=== PATIENT | male | born 1940 | race African-American/Black ===

== ENCOUNTER 2017-12-31 14:49 | Emergency (ER) | payer MEDICARE, OTHER ==
[2017-12-31 14:57] VITALS: BP 159/62
--- NOTE | 2017-12-31 15:28 | ER Document Report ---
ED Medical Screen (RME) - General Chief Complaint: Abnormal Lab Results Stated Complaint: ABNORMAL LABS Time Seen by Provider: 12/31/17 15:25 TRAVEL OUTSIDE OF THE U.S. IN LAST 30 DAYS: No - HPI Notes: 12/31/17 15:25 Patient coming in complaining that his cold stating that he receives blood transfusions weekly patient has a dialysis catheter coming out of the left side of his neck along with a port to the right side of his chest. Family member at bedside states patient recently was discharged from a rehab facility in [place] and is now moved here to [place]. Family at bedside states the patient does have an extensive medical history of which they know nothing about it. - Related Data Allergies/Adverse Reactions: No Known Allergies Allergy (Unverified 12/31/17 14:51) Past Medical History - Social History Frequency of alcohol use: None Drug Abuse: None Renal/ Medical History: Denies: Hx Peritoneal Dialysis Review of Systems - Review of Systems Constitutional: Other - cold Physical Exam - Vital signs Vitals: Temp Pulse Resp BP Pulse Ox 98.2 F 65 16 159/62 H 99 12/31/17 14:56 12/31/17 14:56 12/31/17 14:56 12/31/17 14:56 12/31/17 14:56 - Respiratory Respiratory status: No respiratory distress Chest status: Nontender Breath sounds: Normal Chest palpation: Normal - Cardiovascular Rhythm: Regular Heart sounds: Normal auscultation Course - Vital Signs Vital signs: Temp Pulse Resp BP Pulse Ox 98.2 F 65 16 159/62 H 99 12/31/17 14:56 12/31/17 14:56 12/31/17 14:56 12/31/17 14:56 12/31/17 14:56
[2017-12-31 16:19] LABS: ABSOLUTE EOSINOPHILS # (AUTO) 0.3 10^3/uL (0.0-0.6); ABSOLUTE LYMPHOCYTES (AUTO) 0.4 10^3/uL (0.5-4.7); ABSOLUTE MONOCYTES (AUTO) 0.7 10^3/uL (0.1-1.4); ABSOLUTE NEUT (AUTO) 3.7 10^3/uL (1.7-8.2); BASOPHILS % (AUTO) 0.9 % (0-2); EOSINOPHILS % (AUTO) 6.1 % (0-6); HEMATOCRIT 24.6 % (37.9-51.0); HEMOGLOBIN 8.1 g/dL (13.5-17.0); LYMPHOCYTES % (AUTO) 8.4 % (13-45); MEAN CORPUSCULAR HEMOGLOBIN 31.1 pg (27.0-33.4); MEAN CORPUSCULAR VOLUME 94 fl (80-97); MONOCYTES % (AUTO) 13.3 % (3-13); PLATELET COUNT 147 10^3/uL (150-450); RED BLOOD COUNT 2.62 10^6/uL (4.35-5.55); RED CELL DISTRIBUTION WIDTH 16.7 % (11.5-14.0); SEGMENTED NEUTROPHILS % (AUTO) 71.3 % (42-78); TOTAL CELLS COUNTED % (AUTO) 100 %; WHITE BLOOD COUNT 5.3 10^3/uL (4.0-10.5)
[2017-12-31 16:39] LABS: ANION GAP 11 (5-19); BLOOD UREA NITROGEN 42 mg/dL (7-20); CARBON DIOXIDE 27 mmol/L (22-30); CHLORIDE 104 mmol/L (98-107); GLUCOSE 101 mg/dL (75-110); POTASSIUM 3.8 mmol/L (3.6-5.0); SODIUM 141.9 mmol/L (137-145)
--- NOTE | 2017-12-31 18:59 | ER Document Report ---
ED General - General Chief Complaint: Abnormal Lab Results Stated Complaint: ABNORMAL LABS Time Seen by Provider: 12/31/17 15:25 Mode of Arrival: Ambulatory Information source: Patient Notes: 77-year-old man with a history of diabetes and end-stage renal disease (he does have a Juan Carlos catheter). He does have a history of anemia and wanted to get his blood checked. Additionally, he left [place] 3 days ago and the criminal justice social worker has not set up dialysis and is now living with family here and they are trying to get him into the system for dialysis. TRAVEL OUTSIDE OF THE U.S. IN LAST 30 DAYS: No - HPI Onset: Last week Onset/Duration: Gradual Quality of pain: No pain Severity: None Pain Level: Denies Associated symptoms: denies: Chest pain, Fever, Shortness of breath Exacerbated by: Denies Relieved by: Denies Similar symptoms previously: Yes Recently seen / treated by doctor: No - Related Data Allergies/Adverse Reactions: No Known Allergies Allergy (Unverified 12/31/17 14:51) Past Medical History - General Information source: Patient - Social History Smoking Status: Current Every Day Smoker Cigarette use (# per day): Yes - Half pack per day Chew tobacco use (# tins/day): No Frequency of alcohol use: None Drug Abuse: None Lives with: Family Family History: None Patient has suicidal ideation: No Patient has homicidal ideation: No - Past Medical History Cardiac Medical History: Reports: Hx Hypertension Pulmonary Medical History: Reports: Hx COPD Endocrine Medical History: Reports: Hx Diabetes Mellitus Type 2 Renal/ Medical History: Denies: Hx Peritoneal Dialysis Past Surgical History: Reports: Hx Abdominal Surgery - exploratory, Hx Appendectomy Review of Systems - Review of Systems Constitutional: denies: Chills, Fever EENT: No symptoms reported Cardiovascular: No symptoms reported Respiratory: No symptoms reported Gastrointestinal: No symptoms reported Genitourinary: No symptoms reported Male Genitourinary: No symptoms reported Musculoskeletal: No symptoms reported Skin: No symptoms reported Hematologic/Lymphatic: No symptoms reported Neurological/Psychological: No symptoms reported Physical Exam - Vital signs Vitals: Temp Pulse Resp BP Pulse Ox 98.2 F 65 16 159/62 H 99 12/31/17 14:56 12/31/17 14:56 12/31/17 14:56 12/31/17 14:56 12/31/17 14:56 Notes: Physical exam: GENERAL: 77-year-old man, alert and oriented 3, no acute distress HEAD: Atraumatic, normocephalic. EYES: Pupils equal round and reactive to light, extraocular movements intact, sclera anicteric, conjunctiva are normal. ENT: TMs normal, nares patent, oropharynx clear without exudates. Moist mucous membranes. NECK: Normal range of motion, supple without obvious mass or JVD. Left Juan Carlos catheter: Site dry and intact. LUNGS: Breath sounds clear to auscultation bilaterally and equal. No wheezes rales or rhonchi. HEART: Regular rate and rhythm without murmurs, rubs or gallops. ABDOMEN: Soft, normoactive bowel sounds. No tenderness to palpation. No guarding, no rebound. No masses appreciated. EXTREMITIES: Normal range of motion. Chronic nonpitting 2+ edema bilaterally. No clubbing or cyanosis. NEUROLOGICAL: Cranial nerves II through XII grossly intact. Normal speech, moving all extremities. PSYCH: Normal mood, normal affect. SKIN: Warm, Dry, normal turgor, no rashes or lesions noted. Course - Re-evaluation Re-evalutation: 01/01/18 02:52 Note: I have had a long discussion with the family. Patient has had anemia in the past requiring transfusions and he can normally feel when he is anemic. Patient denies any weakness and states he does not feel like he needs a transfusion. The issue at hand for this patient is that he recently relocated from [place] and a week before his departure, he was started on dialysis. No arrangements were made in [place] for setting up dialysis here. I did discuss the case with Dr. Maria who recommended having family contact the criminal justice social worker in [place] where the dialysis was performed and having them send paperwork to [facility]. I discussed this with them. I also gave them contact numbers for Dr. Maria as well as a primary care doctor. - Vital Signs Vital signs: Temp Pulse Resp BP Pulse Ox 98.2 F 65 14 159/62 H 99 12/31/17 14:56 12/31/17 14:56 12/31/17 18:14 12/31/17 14:56 12/31/17 14:56 - Laboratory Result Diagrams: 12/31/17 15:35 12/31/17 15:35 Laboratory results interpreted by me: 12/31/17 12/31/17 15:35 15:35 RBC 2.62 L Hgb 8.1 L Hct 24.6 L RDW 16.7 H Plt Count 147 L Lymphocytes % 8.4 L Monocytes % 13.3 H Eosinophils % 6.1 H Absolute Lymphocytes 0.4 L BUN 42 H Creatinine 5.72 H Est GFR ( Amer) 12 L Est GFR (Non-Af Amer) 10 L Calcium 8.0 L Discharge - Discharge Clinical Impression: End-stage renal disease Condition: Stable Disposition: HOME, SELF-CARE Additional Instructions: There is a fair amount of paperwork that needs to be taken care of for dialysis. I recommend you call the criminal justice social worker from [place] and asked them to send paperwork to [facility] in [place], [place] to set up dialysis. This is the quickest way to get back into the dialysis here. In the meantime, I put the number for her primary care doctor (Dr. Raya), as well as the number for the kidney doctor (Dr. Maria) on the chart and I would call both offices to see if you can get an appointment soon. Return to the emergency room if he develops shortness of breath, worsening weakness or fatigue or any concerns or getting worse. Referrals: Arik MARIA MD [ACTIVE STAFF] - Follow up as needed (This is the number the kidney doctor) TRACI RAYA MD [ACTIVE STAFF] - Follow up as needed (This is the number of a good primary care doctor affiliated with the hospital.)
== END 2017-12-31 19:31 | disposition home or self-care (01) ==
LOC: EDBD → ER 14:49
DX: I12.0 Hypertensive chronic kidney disease with stage 5 chronic kidney disease or end stage renal disease (principal); E11.22 Type 2 diabetes mellitus with diabetic chronic kidney disease; N18.6 End stage renal disease; Z99.2 Dependence on renal dialysis; F17.210 Nicotine dependence, cigarettes, uncomplicated; J44.9 Chronic obstructive pulmonary disease, unspecified
CPT/HCPCS: 36415; 80048; 85025; 86850; 86900; 86901; 99284

== ENCOUNTER 2018-01-02 03:12 | Emergency (ER) | payer MEDICARE, OTHER ==
[2018-01-02] MEDS ORDERED: ASPIRIN 81 MG TABLET, CHEWABLE PO ONE (03:19)
[2018-01-02] MEDS ORDERED: CALCIUM GLUCONATE 1000 MG/10 ML INJ IV ONE ×2 (03:28→03:59)
[2018-01-02] MEDS: NITROGLYCERIN 0.4 MG/TAB 25 TAB/BOTTLE SL PRN ×3 (03:42→04:09)
--- NOTE | 2018-01-02 03:42 | RADIOLOGY REPORT (SQ) ---
EXAM DESCRIPTION: XR CHEST 1 VIEW COMPLETED DATE/TME: 01/02/2018 03:19 CLINICAL HISTORY: Resp distress COMPARISON: None. FINDINGS: Single frontal view of the chest. Cardiomegaly. Left IJ temporary hemodialysis catheter with tip in the SVC. Right IJ Mediport with tip in the high right atrium. Pulmonary vascular congestion. No consolidation, pneumothorax, or pleural effusion. No displaced rib fractures identified. Upper abdominal soft tissues are unremarkable. IMPRESSION: 1. Cardiomegaly with pulmonary vascular congestion.
[2018-01-02 03:44] LABS: ARTERIAL BLOOD BASE EXCESS -1.2 mmol/L; ARTERIAL BLOOD H2CO3 2.63 mmol/L (1.05-1.35); ARTERIAL BLOOD HCO3 29.4 mmol/L (20-24); ARTERIAL BLOOD O2 SATURATION 99.2 % (94-98); ARTERIAL BLOOD PO2 229.6 mmHg (80-100); ARTERIAL BLOOD TOTAL CO2 32.1 mmol/L (23-27)
[2018-01-02 03:45] LABS: ARTERIAL BLOOD FIO2 60%
--- NOTE | 2018-01-02 03:45 | ER Document Report ---
ED General - General Chief Complaint: Respiratory Distress Stated Complaint: DIFFICULTY BREATHING Time Seen by Provider: 01/02/18 03:25 TRAVEL OUTSIDE OF THE U.S. IN LAST 30 DAYS: No - HPI Notes: Patient is a 77-year-old male that presents to the emergency department for chief complaint of shortness of breath and chest pain. Patient has missed dialysis for at least the last 5 days because he recently moved to the area. He is currently now living with his son who is in the process of getting him established in the area for dialysis. Patient began getting increasingly short of breath today. He did report to EMS that he was having substernal chest pain. Patient is currently on CPAP and not able to provide further descriptions of his chest pain. EMS states he was 88% on room air and was tripoding at presentation. They gave him 2 inches of Nitropaste and placed him on CPAP. HPI limited because of patient's CPAP and clinical condition. Past Medical History: Renal failure, COPD Past Surgical History: Mediport, left neck dialysis catheter Social History: Unknown Family History: Reviewed and noncontributory for presenting illness Allergies: Reviewed, see documented allergy list. REVIEW OF SYSTEMS: CONSTITUTIONAL : No fever No chills No diaphoresis No recent illness EENT: No vision changes No congestion No sore throat CARDIOVASCULAR: chest pain No palpitations No shortness of breath RESPIRATORY: shortness of breath No cough No difficulty breathing GASTROINTESTINAL: No abdominal pain No nausea No vomiting No diarrhea GENITOURINARY: No dysuria No hematuria No difficulty urinating MUSCULOSKELETAL: No back pain No leg pain No arm pain SKIN: No rashes No lesions LYMPHATIC: No swollen, enlarged glands. NEUROLOGICAL: No lightheadedness No headache No weakness No paresthesias PSYCHIATRIC: No anxiety No depression PHYSICAL EXAMINATION: Vital signs reviewed, nursing noted reviewed. GENERAL: Diaphoretic, moderate acute distress HEAD: Atraumatic, normocephalic. EYES: Eyes appear normal, extraocular movements intact, sclera anicteric, conjunctiva are normal. ENT: nares patent, oropharynx clear without exudates. Moist mucous membranes. NECK: Normal range of motion, supple without lymphadenopathy. Left-sided dialysis catheter no bleeding or drainage LUNGS: Breath sounds wheezing and diminished to auscultation bilaterally. Moderate accessory muscle use and retractions HEART: Regular rate and rhythm without murmurs ABDOMEN: Soft, nontender, normoactive bowel sounds. No rebound, guarding, or rigidity. No masses appreciated. Protuberant EXTREMITIES: Nontender, good range of motion, no pitting or edema. NEUROLOGICAL: No focal neurological deficits. Moves all extremities spontaneously Motor and sensory grossly intact on exam. PSYCH: Normal mood, normal affect. SKIN: no rashes or lesions noted on exposed skin - Related Data Allergies/Adverse Reactions: amitriptyline Allergy (Verified 01/02/18 03:41) methylphenidate Allergy (Verified 01/02/18 03:41) metoclopramide [From Reglan] Allergy (Verified 01/02/18 03:41) Past Medical History - Social History Smoking Status: Unknown if Ever Smoked Family History: None Patient has suicidal ideation: No Patient has homicidal ideation: No - Past Medical History Cardiac Medical History: Reports: Hx Hypertension Pulmonary Medical History: Reports: Hx COPD Endocrine Medical History: Reports: Hx Diabetes Mellitus Type 2 Renal/ Medical History: Denies: Hx Peritoneal Dialysis Past Surgical History: Reports: Hx Abdominal Surgery - exploratory, Hx Appendectomy Review of Systems - Review of Systems Notes: Dictated Physical Exam - Vital signs Vitals: Pulse Ox 80 L 01/02/18 03:16 - Notes Notes: Dictated Course - Re-evaluation Re-evalutation: 01/02/18 03:51 Vitals reviewed. Nursing note reviewed. Patient presented in acute respiratory distress on CPAP. He has not had dialysis and at least 5 days and is presumed pulmonary edema. EKG shows hyperacute T waves possibly related to hyperkalemia therefore patient was ordered calcium gluconate prior to labs returning to prevent life-threatening dysrhythmia. Patient's labs were turned prior to calcium gluconate being given and showed a normal potassium level therefore calcium gluconate was not given. Patient was complaining of chest pain and initial EKG showed mild ST depressions in V4-V6. Patient given aspirin for possible ACS. There is no STEMI and repeat EKG is improving, EKG changes likely related to patient's hypoxia which has improved with CPAP and nitro. On reevaluation patient is significantly improving. His diaphoresis is resolved and respirations are less labored. He is now able to speak in partial sentences. He was able to tell me he has a history of COPD and was given albuterol and DuoNeb in the emergency room. Patient does make urine and was given a dose of Lasix. Because he does not have nephrology established in the area and there is no nephrology healthcare administration internship currently he will be transferred to [facility] for emergent dialysis and further management of his respiratory failure. Case discussed with admitting doctor Dr. Lagos who accepted transfer. Patient and his son are in agreement with the plan. Laboratory 01/02/18 03:30 Carbonic Acid 2.63 H HCO3/H2CO3 Ratio 11:1 ABG pH 7.15 L* ABG pCO2 87.3 H* ABG pO2 229.6 H ABG HCO3 29.4 H ABG Total CO2 32.1 H ABG O2 Saturation 99.2 H ABG Base Excess -1.2 FiO2 60% 01/02/18 04:30 Chest X-Ray 01/02/18 03:19 IMPRESSION: 1. Cardiomegaly with pulmonary vascular congestion. Laboratory 01/02/18 01/02/18 01/02/18 03:28 03:28 03:28 WBC 7.5 RBC 2.62 L Hgb 8.2 L Hct 24.7 L MCV 95 MCH 31.2 MCHC 33.0 RDW 16.6 H Plt Count 183 Seg Neutrophils % 74.4 Lymphocytes % 9.6 L Monocytes % 9.5 Eosinophils % 5.6 Basophils % 0.9 Absolute Neutrophils 5.5 Absolute Lymphocytes 0.7 Absolute Monocytes 0.7 Absolute Eosinophils 0.4 Absolute Basophils 0.1 PT 13.8 INR 1.01 Carbonic Acid HCO3/H2CO3 Ratio ABG pH ABG pCO2 ABG pO2 ABG HCO3 ABG Total CO2 ABG O2 Saturation ABG Base Excess FiO2 Sodium 142.6 Potassium 4.1 Chloride 105 Carbon Dioxide 29 Anion Gap 9 BUN 48 H Creatinine 5.74 H Est GFR ( Amer) 12 L Est GFR (Non-Af Amer) 10 L Glucose 167 H Calcium 7.8 L Total Bilirubin 0.3 Direct Bilirubin 0.3 Neonat Total Bilirubin Not Reportable Neonat Direct Bilirubin Not Reportable Neonat Indirect Bili Not Reportable AST 21 ALT 21 Alkaline Phosphatase 48 Troponin I Total Protein 6.6 Albumin 3.5 01/02/18 01/02/18 03:28 03:30 WBC RBC Hgb Hct MCV MCH MCHC RDW Plt Count Seg Neutrophils % Lymphocytes % Monocytes % Eosinophils % Basophils % Absolute Neutrophils Absolute Lymphocytes Absolute Monocytes Absolute Eosinophils Absolute Basophils PT INR Carbonic Acid 2.63 H HCO3/H2CO3 Ratio 11:1 ABG pH 7.15 L* ABG pCO2 87.3 H* ABG pO2 229.6 H ABG HCO3 29.4 H ABG Total CO2 32.1 H ABG O2 Saturation 99.2 H ABG Base Excess -1.2 FiO2 60% Sodium Potassium Chloride Carbon Dioxide Anion Gap BUN Creatinine Est GFR ( Amer) Est GFR (Non-Af Amer) Glucose Calcium Total Bilirubin Direct Bilirubin Neonat Total Bilirubin Neonat Direct Bilirubin Neonat Indirect Bili AST ALT Alkaline Phosphatase Troponin I 0.033 Total Protein Albumin Reevaluation patient is oxygenating much better and FiO2 was turned down. His diaphoresis has resolved. BP improved. - Vital Signs Vital signs: Temp Pulse Resp BP Pulse Ox 97.5 F 79 21 H 186/85 H 100 01/02/18 03:49 01/02/18 04:16 01/02/18 04:16 01/02/18 03:48 01/02/18 04:16 - Laboratory Result Diagrams: 01/02/18 03:28 01/02/18 03:28 Laboratory results interpreted by me: 01/02/18 01/02/18 01/02/18 03:28 03:28 03:30 RBC 2.62 L Hgb 8.2 L Hct 24.7 L RDW 16.6 H Lymphocytes % 9.6 L Carbonic Acid 2.63 H ABG pH 7.15 L* ABG pCO2 87.3 H* ABG pO2 229.6 H ABG HCO3 29.4 H ABG Total CO2 32.1 H ABG O2 Saturation 99.2 H BUN 48 H Creatinine 5.74 H Est GFR ( Amer) 12 L Est GFR (Non-Af Amer) 10 L Glucose 167 H Calcium 7.8 L - EKG Interpretation by Me Additional EKG results interpreted by me: 01/02/18 03:56 EKG #1: 0315. Normal sinus rhythm, rate 90, normal axis, no ectopy, normal AL and QRS. Hyperacute T waves. ST depression in V4 through V6 EKG #2:0325. Normal sinus rhythm, rate 95, normal axis, no ectopy, hyperacute T waves unchanged, improved ST depression V4 through V6 Discharge - Discharge Clinical Impression: Abnormal EKG Hypercapnic respiratory failure Qualifiers: Chronicity: acute on chronic Qualified Code(s): J96.22 - Acute and chronic respiratory failure with hypercapnia Pulmonary edema Qualifiers: Chronicity: acute Qualified Code(s): J81.0 - Acute pulmonary edema Condition: Stable Disposition: [facility]
[2018-01-02 03:46] LABS: ARTERIAL BLOOD PCO2 87.3 mmHg (35-45); ARTERIAL BLOOD PH 7.15 (7.35-7.45)
[2018-01-02] MEDS ORDERED: FUROSEMIDE INJ/PF 40 MG/4 ML SDV IV ONE (03:47)
[2018-01-02] MEDS ORDERED: IPRATROPIUM/ALBUTEROL 0.5-2.5 MG/3 ML AMPUL NEB ONE (03:48)
[2018-01-02] MEDS ORDERED: ALBUTEROL SULFATE 0.083% NEB 2.5 MG/3 ML AMPUL NEB ONE (03:48)
[2018-01-02 03:59] LABS: ABSOLUTE BASOPHILS # (AUTO) 0.1 10^3/uL (0.0-0.2); ABSOLUTE EOSINOPHILS # (AUTO) 0.4 10^3/uL (0.0-0.6); ABSOLUTE LYMPHOCYTES (AUTO) 0.7 10^3/uL (0.5-4.7); ABSOLUTE MONOCYTES (AUTO) 0.7 10^3/uL (0.1-1.4); ABSOLUTE NEUT (AUTO) 5.5 10^3/uL (1.7-8.2); BASOPHILS % (AUTO) 0.9 % (0-2); EOSINOPHILS % (AUTO) 5.6 % (0-6); HEMATOCRIT 24.7 % (37.9-51.0); HEMOGLOBIN 8.2 g/dL (13.5-17.0); LYMPHOCYTES % (AUTO) 9.6 % (13-45); MEAN CORPUSCULAR HEMOGLOBIN 31.2 pg (27.0-33.4); MEAN CORPUSCULAR VOLUME 95 fl (80-97); MONOCYTES % (AUTO) 9.5 % (3-13); PLATELET COUNT 183 10^3/uL (150-450); RED BLOOD COUNT 2.62 10^6/uL (4.35-5.55); RED CELL DISTRIBUTION WIDTH 16.6 % (11.5-14.0); SEGMENTED NEUTROPHILS % (AUTO) 74.4 % (42-78); TOTAL CELLS COUNTED % (AUTO) 100 %; WHITE BLOOD COUNT 7.5 10^3/uL (4.0-10.5)
[2018-01-02 04:04] LABS: INTERNATIONAL RATION (INR) 1.01; PROTHROMBIN TIME 13.8 SEC (11.4-15.4)
[2018-01-02 04:18] LABS: ALANINE AMINOTRANSFERASE 21 U/L (21-72); ALBUMIN 3.5 g/dL (3.5-5.0); ALKALINE PHOSPHATASE 48 U/L (38-126); ANION GAP 9 (5-19); ASPARTATE AMINO TRANSFERASE 21 U/L (17-59); BILIRUBIN,DIRECT 0.3 mg/dL (0.0-0.4); BILIRUBIN,TOTAL 0.3 mg/dL (0.2-1.3); BLOOD UREA NITROGEN 48 mg/dL (7-20); CALCIUM 7.8 mg/dL (8.4-10.2); CARBON DIOXIDE 29 mmol/L (22-30); CHLORIDE 105 mmol/L (98-107); GLUCOSE 167 mg/dL (75-110); POTASSIUM 4.1 mmol/L (3.6-5.0); SODIUM 142.6 mmol/L (137-145); TOTAL PROTEIN 6.6 g/dL (6.3-8.2)
[2018-01-02 05:17] VITALS: BP 163/64
--- NOTE | 2018-01-02 07:34 | EKG REPORT ---
SEVERITY:- OTHERWISE NORMAL ECG - SINUS RHYTHM ATRIAL PREMATURE COMPLEX MINIMAL ST DEPRESSION, LATERAL LEADS : Confirmed by: Dez Rincon MD 02-Jan-2018 07:33:22
--- NOTE | 2018-01-02 07:34 | EKG REPORT ---
SEVERITY:- ABNORMAL ECG - SINUS RHYTHM BORDERLINE ST DEPRESSION, LATERAL LEADS : Confirmed by: Dez Rincon MD 02-Jan-2018 07:33:44
== END 2018-01-02 05:15 | disposition short-term general hospital (02) ==
LOC: ER 03:12
DX: J96.22 Acute and chronic respiratory failure with hypercapnia (principal); J44.9 Chronic obstructive pulmonary disease, unspecified; N19 Unspecified kidney failure; Z99.2 Dependence on renal dialysis; Z91.15 Patient's noncompliance with renal dialysis; I11.9 Hypertensive heart disease without heart failure; J81.0 Acute pulmonary edema; R94.31 Abnormal electrocardiogram [ECG] [EKG]; E11.9 Type 2 diabetes mellitus without complications; R07.89 Other chest pain; Z88.8 Allergy status to other drugs, medicaments and biological substances; R61 Generalized hyperhidrosis
CPT/HCPCS: 93005; 36591; 94640 ×4; 99285; 96374; 36415; 82803; 85025; 85610; 80053; 84484; 71045; 93010; 36600; 94660; A9270 ×3; J0610; J1940; J7620

== ENCOUNTER 2018-03-06 08:06 | Emergency (ER) | payer MEDICARE ==
[2018-03-06] MEDS ORDERED: LEVETIRACETAM 500 MG/NACL-ISO 500 MG/100 ML RTUPB IV ONE (08:11)
[2018-03-06] MEDS ORDERED: LEVETIRACETAM 1000 MG/NACL-ISO 1,000 MG/100 ML RTUPB IV ONE (08:11)
[2018-03-06] MEDS ORDERED: LORAZEPAM INJ 2 MG/1 ML VIAL ONE ×3 (08:17→12:05)
[2018-03-06 08:35] LABS: INTERNATIONAL RATION (INR) 1.08; PROTHROMBIN TIME 14.6 SEC (11.4-15.4)
[2018-03-06 08:36] LABS: PARTIAL THROMBOPLASTIN TIME 29.6 SEC (23.5-35.8)
[2018-03-06 08:42] LABS: ABSOLUTE EOSINOPHILS # (AUTO) 0.2 10^3/uL (0.0-0.6); ABSOLUTE LYMPHOCYTES (AUTO) 1.4 10^3/uL (0.5-4.7); ABSOLUTE MONOCYTES (AUTO) 0.6 10^3/uL (0.1-1.4); ABSOLUTE NEUT (AUTO) 5.8 10^3/uL (1.7-8.2); BASOPHILS % (AUTO) 0.6 % (0-2); EOSINOPHILS % (AUTO) 2.6 % (0-6); HEMATOCRIT 41.2 % (37.9-51.0); HEMOGLOBIN 13.4 g/dL (13.5-17.0); LYMPHOCYTES % (AUTO) 17.8 % (13-45); MEAN CORPUSCULAR HGB CONC 32.5 g/dL (32.0-36.0); MEAN CORPUSCULAR VOLUME 95 fl (80-97); MONOCYTES % (AUTO) 7.1 % (3-13); PLATELET COUNT 198 10^3/uL (150-450); RED BLOOD COUNT 4.33 10^6/uL (4.35-5.55); RED CELL DISTRIBUTION WIDTH 17.8 % (11.5-14.0); SEGMENTED NEUTROPHILS % (AUTO) 71.9 % (42-78); TOTAL CELLS COUNTED % (AUTO) 100 %
--- NOTE | 2018-03-06 08:42 | RADIOLOGY REPORT (SQ) ---
EXAM DESCRIPTION: CT HEAD WITHOUT COMPLETED DATE/TIME: 03/06/2018 8:31 am REASON FOR STUDY: new seizure new onset seizure COMPARISON: None. TECHNIQUE: Axial images acquired through the brain without intravenous contrast. Images reviewed wi th bone, brain and subdural windows. Additional sagittal and coronal reconstructions were generated. Images stored on PACS. All CT scanners at this facility use dose modulation, iterative reconstruction, and/or weight based d osing when appropriate to reduce radiation dose to as low as reasonably achievable (ALARA). [facility]: Dose Right [facility]: CareDose [facility]: Dose Right [facility]: Teradose 4D [facility]: [employer] RADIATION DOSE: CT Rad equipment meets quality standard of care and radiation dose reduction techniq ues were employed. CTDIvol: 53.2 mGy. DLP: 1070 mGy-cm. mGy. LIMITATIONS: Motion artifact FINDINGS: VENTRICLES: The lateral and 3rd ventricles are prominent as compared to the sulci and sylv soledad fissures. Normal pressure hydrocephalus may be present. CEREBRUM: Motion artifact on today's study. On images without motion, no gross acute intracranial he morrhage mass effect or midline shift is seen. No gross large territory acute ischemic change. Moder ate periventricular low attenuation is present, which could either the small vessel ischemic change o r transependymal CSF flow. CEREBELLUM: No masses. No hemorrhage. No alteration of density. No evidence for acute infarction. EXTRAAXIAL SPACES: No fluid collections. No masses. ORBITS AND GLOBE: Post cataract surgery. Orbits otherwise unremarkable CALVARIUM: No fracture. PARANASAL SINUSES: No fluid or mucosal thickening. SOFT TISSUES: No mass or hematoma. OTHER: No other significant finding. IMPRESSION: Motion artifact Dilated lateral and 3rd ventricles out of proportion to sulci and sylvian fissures. Question normal pressure hydrocephalus Low attenuation in the bifrontal and biparietal periventricular white matter could either be small ve ssel ischemic change or transependymal CSF flow in the right clinical setting. EVIDENCE OF ACUTE STROKE: NO. COMMENT: Quality ID # [id number]: Final reports with documentation of one or more dose reduction techniques (e.g., Automated exposure control, adjustment of the mA and/or kV according to patient size, use of iterative reconstruction technique) TECHNICAL DOCUMENTATION: JOB ID: [id number] [employer]- All Rights Reserved Reading location - IP/workstation name: [facility]
--- NOTE | 2018-03-06 08:44 | RADIOLOGY REPORT (SQ) ---
EXAM DESCRIPTION: CHEST SINGLE VIEW COMPLETED DATE/TIME: 03/06/2018 8:33 am REASON FOR STUDY: new onset seizure COMPARISON: AP chest 01/02/2018 EXAM PARAMETERS: NUMBER OF VIEWS: One view. TECHNIQUE: Single frontal radiographic view of the chest acquired. RADIATION DOSE: NA LIMITATIONS: None. FINDINGS: LUNGS AND PLEURA: No opacities, masses or pneumothorax. No pleural effusion. MEDIASTINUM AND HILAR STRUCTURES: No masses. Contour normal. HEART AND VASCULAR STRUCTURES: Stable mild cardiomegaly BONES: No acute findings. HARDWARE: Unchanged left subclavian central venous dialysis catheter and right sided permanent centra l line, catheter tips are in the SVC/right atrium. OTHER: No other significant finding. IMPRESSION: No acute findings TECHNICAL DOCUMENTATION: JOB ID: [id number] [employer]- All Rights Reserved Reading location - IP/workstation name: [facility]
[2018-03-06 08:45] LABS: ALANINE AMINOTRANSFERASE 12 U/L (21-72); ALBUMIN 4.5 g/dL (3.5-5.0); ALKALINE PHOSPHATASE 80 U/L (38-126); ASPARTATE AMINO TRANSFERASE 26 U/L (17-59); BILIRUBIN,DIRECT 0.4 mg/dL (0.0-0.4); BILIRUBIN,TOTAL 0.7 mg/dL (0.2-1.3); BLOOD UREA NITROGEN 30 mg/dL (7-20); CALCIUM 9.4 mg/dL (8.4-10.2); CARBON DIOXIDE 17 mmol/L (22-30); CHLORIDE 103 mmol/L (98-107); CREATINE KINASE 88 U/L (55-170); GLUCOSE 196 mg/dL (75-110); LIPASE 121.7 U/L (23-300); POTASSIUM 4.2 mmol/L (3.6-5.0); TOTAL PROTEIN 7.6 g/dL (6.3-8.2)
[2018-03-06 08:46] LABS: ACETAMINOPHEN < 10 ug/mL (10-30); ALCOHOL < 10 mg/dL (NONE DETECTED); SALICYLATE < 1.0 mg/dL (2.0-20.0)
[2018-03-06 08:49] LABS: ANION GAP 26 (5-19)
[2018-03-06 09:00] LABS: CREATINE KINASE MB 2.13 ng/mL (<4.55)
--- NOTE | 2018-03-06 09:01 | ER Document Report ---
ED General - General Stated Complaint: POSSIBLE SEIZURE Time Seen by Provider: 03/06/18 08:14 Mode of Arrival: Medic Information source: Relative, Emergency Med Personnel Cannot obtain history due to: Altered mental status Notes: 77-year-old male with hypertension, COPD, type 2 diabetes end-stage renal disease undergoing dialysis Friday, Friday, Friday presents via EMS from home after having a seizure which the states started while they were in bed causing him to fall out of bed. She states that the patient had upper extremity shaking. EMS reports that upon their arrival patient had a right- sided upper extremity tonic-clonic movements. He was incontinent of urine. [id number] is at the bedside now and states that the patient has otherwise been well. She denies any recent illness. He has been going to dialysis and not missed any sessions. Prior to arrival EMS gave 2.5 mg of nasal Versed, 2.5 mg of IV Versed and 1 mg of Ativan IV. TRAVEL OUTSIDE OF THE [place] IN LAST 30 DAYS: No - HPI Onset: Just prior to arrival Onset/Duration: Sudden Similar symptoms previously: No Recently seen / treated by doctor: Yes - Related Data Allergies/Adverse Reactions: amitriptyline Allergy (Verified 01/02/18 03:41) methylphenidate Allergy (Verified 01/02/18 03:41) metoclopramide [From Reglan] Allergy (Verified 01/02/18 03:41) Past Medical History - General Information source: Relative, [facility] Records Cannot obtain history due to: Altered mental status - Social History Smoking Status: Current Every Day Smoker Cigarette use (# per day): Yes - 20 Smoking Education Provided: Yes - Smoking cessation counseling was provided for 4 minutes at the bedside Frequency of alcohol use: None Drug Abuse: None Lives with: Family Family History: None - Past Medical History Cardiac Medical History: Reports: Hx Hypertension Pulmonary Medical History: Reports: Hx COPD Endocrine Medical History: Reports: Hx Diabetes Mellitus Type 2 Renal/ Medical History: Reports: Hx End Stage Renal Disease. Denies: Hx Peritoneal Dialysis Past Surgical History: Reports: Hx Abdominal Surgery - exploratory, Hx Appendectomy Review of Systems - Review of Systems -: Yes ROS unobtainable due to patient's medical condition Physical Exam - Vital signs Vitals: Resp Pulse Ox 15 92 03/06/18 08:12 03/06/18 08:12 Interpretation: Hypertensive. No: Hypoxic, Febrile - Notes Notes: PHYSICAL EXAMINATION: GENERAL: Somnolent. HEAD: Atraumatic, normocephalic. EYES: Pupils equal round and reactive to light, extraocular movements intact, sclera anicteric, conjunctiva are normal. ENT: Nares patent, oropharynx clear without exudates. Moist mucous membranes. NECK: Normal range of motion, supple without lymphadenopathy LUNGS: Breath sounds clear to auscultation bilaterally and equal. No wheezes rales or rhonchi. Maintaining airway, no increased work of breathing, spontaneous respirations, no hypoxia HEART: Regular rate and rhythm without murmurs ABDOMEN: Soft, nontender, nondistended abdomen. No guarding, no rebound. No masses appreciated. Musculoskeletal: Normal range of motion, no pitting or edema. No cyanosis. NEUROLOGICAL: Postictal, unresponsive PSYCH: Somnolent SKIN: Warm, Dry, normal turgor, no rashes or lesions noted. Course - Re-evaluation Re-evalutation: Laboratory 03/06/18 03/06/18 03/06/18 08:13 08:13 08:13 WBC 8.0 RBC 4.33 L Hgb 13.4 L Hct 41.2 MCV 95 MCH 31.0 MCHC 32.5 RDW 17.8 H Plt Count 198 Seg Neutrophils % 71.9 Lymphocytes % 17.8 Monocytes % 7.1 Eosinophils % 2.6 Basophils % 0.6 Absolute Neutrophils 5.8 Absolute Lymphocytes 1.4 Absolute Monocytes 0.6 Absolute Eosinophils 0.2 Absolute Basophils 0.0 PT 14.6 INR 1.08 APTT 29.6 Sodium 146.0 H Potassium 4.2 Chloride 103 Carbon Dioxide 17 L Anion Gap 26 H BUN 30 H Creatinine 5.23 H Est GFR ( Amer) 13 L Est GFR (Non-Af Amer) 11 L Glucose 196 H Calcium 9.4 Total Bilirubin 0.7 Direct Bilirubin 0.4 Neonat Total Bilirubin Not Reportable Neonat Direct Bilirubin Not Reportable Neonat Indirect Bili Not Reportable AST 26 ALT 12 L Alkaline Phosphatase 80 Creatine Kinase 88 CK-MB (CK-2) Troponin I Total Protein 7.6 Albumin 4.5 Lipase 121.7 Salicylates < 1.0 L Acetaminophen < 10 L Serum Alcohol < 10 03/06/18 08:13 WBC RBC Hgb Hct MCV MCH MCHC RDW Plt Count Seg Neutrophils % Lymphocytes % Monocytes % Eosinophils % Basophils % Absolute Neutrophils Absolute Lymphocytes Absolute Monocytes Absolute Eosinophils Absolute Basophils PT INR APTT Sodium Potassium Chloride Carbon Dioxide Anion Gap BUN Creatinine Est GFR ( Amer) Est GFR (Non-Af Amer) Glucose Calcium Total Bilirubin Direct Bilirubin Neonat Total Bilirubin Neonat Direct Bilirubin Neonat Indirect Bili AST ALT Alkaline Phosphatase Creatine Kinase CK-MB (CK-2) 2.13 Troponin I 0.088 Total Protein Albumin Lipase Salicylates Acetaminophen Serum Alcohol Head CT 03/06/18 08:15 IMPRESSION: Motion artifact Dilated lateral and 3rd ventricles out of proportion to sulci and sylvian fissures. Question normal pressure hydrocephalus Low attenuation in the bifrontal and biparietal periventricular white matter could either be small vessel ischemic change or transependymal CSF flow in the right clinical setting. EVIDENCE OF ACUTE STROKE: NO. Chest X-Ray 03/06/18 08:17 IMPRESSION: No acute findings Head MRI 03/06/18 09:52 IMPRESSION: Posterior reversible encephalopathy Underlying chronic white matter disease with mild prominence of the ventricles EVIDENCE OF ACUTE STROKE: NO. 77-year-old male with hypertension, end-stage renal disease diabetes presents with seizure-like activity from home. Per EMS patient began seizing while in bed with his and then fell to the floor. Upon their arrival patient was still having tonic-clonic activity. They did administer 2.5 mg of intranasal Versed, 2.5 mg of IV Versed and 1 mg of Ativan IV. Upon arrival patient is unresponsive but maintaining his airway. No seizure-like activity has been witnessed throughout his 6-hour ED course. CTA of the head was obtained and concerning for questionable normal pressure hydrocephalus secondary to dilation of the third ventricle. MRI was recommended and showed posterior reversible encephalopathy. Patient unable to keep still during his MRI so additional sedation was required with Ativan and fentanyl. CBC is without leukocytosis, does show a stable anemia. CMP is consistent with end-stage renal disease. Liver enzymes within normal limits. Troponin mildly elevated likely secondary to his seizure-like activity. EKG is without ST elevation. Patient does have left ventricular hypertrophy but is in sinus rhythm at a rate of 83. Daughter who was not initially at bedside presents and states that the patient undergoes dialysis Friday and Friday and has not missed any of his treatments. She reports that he recently moved here and she has been helping him with his medications. She states he was last seen well by herself yesterday evening. She denies any recent illnesses. Upon arrival vitals were reviewed markedly hypertensive, tachycardic. 03/06/18 10:44 Patient reevaluated and is now speaking to me. He is alert and oriented x3. He is now complaining of a headache that he states started 3 days ago. I did speak to Dr. Bah regarding his CT findings and she recommends MRI. 03/06/18 14:05 [facility] contacted for transfer. Awaiting callback. Spoke to Dr. Bah who read the patient's MRI as showing posterior reversible encephalopathy. This can be due to end-stage renal disease, uncontrolled hypertension which the patient has. This can also cause seizure which is what the patient presented with. 20 mg IV labetalol has been given for patient's elevated blood pressure with minimal improvement. 03/06/18 15:54 I was called into the room after the patient had an episode of vomiting which was dark brown. Patient is still somnolent after receiving Ativan for his MRI. Gastric occult sample sent. Zofran and Protonix given. 03/06/18 16:36 03/06/18 16:40 Patient reevaluated upon transfer team arrival. He is still somnolent but has stable vital signs. Patient will be transported via helicopter. 03/06/18 17:13 - Vital Signs Vital signs: Temp Pulse Resp BP Pulse Ox 98.1 F 99 21 H 148/84 H 94 03/06/18 08:15 03/06/18 08:15 03/06/18 16:16 03/06/18 16:16 03/06/18 16:16 - Laboratory Result Diagrams: 03/06/18 08:13 03/06/18 08:13 Laboratory results interpreted by me: 03/06/18 03/06/18 08:13 08:13 RBC 4.33 L Hgb 13.4 L RDW 17.8 H Sodium 146.0 H Carbon Dioxide 17 L Anion Gap 26 H BUN 30 H Creatinine 5.23 H Est GFR ( Amer) 13 L Est GFR (Non-Af Amer) 11 L Glucose 196 H ALT 12 L Salicylates < 1.0 L Acetaminophen < 10 L - Diagnostic Test Radiology reviewed: Image reviewed, Reports reviewed - EKG Interpretation by Me EKG shows normal: Sinus rhythm Rate: Normal Rhythm: NSR Voltage: Consistant with LVH When compared to previous EKG there are: No significant change Critical Care Note - Critical Care Note Total time excluding time spent on procedures (mins): 60 - Minutes of critical care time spent in direct contact evaluating and reevaluating the patient, treating symptoms, reviewing labs and studies and speaking with family and consultants excluding any procedures Discharge - Discharge Clinical Impression: Hypertensive encephalopathy, Hypertensive emergency, New onset seizure, End stage renal disease, Elevated troponin, Posterior reversible encephalopathy syndrome (PRES) Condition: Fair Disposition: [facility]
[2018-03-06 09:02] LABS: TROPONIN I 0.088 ng/mL
[2018-03-06] MEDS ORDERED: LEVETIRACETAM 1500 MG/NACL-ISO 1,500 MG/100 ML RTUPB IV ONE (09:45)
[2018-03-06] MEDS ORDERED: DIPHENHYDRAMINE HCL 50 MG/ML VIAL IV ONE (10:44)
[2018-03-06] MEDS ORDERED: LABETALOL HCL INJ 20 MG/4 ML DISP.SYRIN IV ONE ×2 (10:46→14:00)
[2018-03-06] MEDS ORDERED: FENTANYL CITRATE INJ/PF 100 MCG/2 ML AMPUL ONE (12:05)
[2018-03-06] MEDS ORDERED: LORAZEPAM INJ 2 MG/1 ML VIAL IV ONE ×2 (12:38)
[2018-03-06] MEDS ORDERED: FENTANYL CITRATE INJ/PF 100 MCG/2 ML AMPUL IV ONE (12:39)
--- NOTE | 2018-03-06 13:20 | RADIOLOGY REPORT (SQ) ---
EXAM DESCRIPTION: MRI HEAD WITHOUT COMPLETED DATE/TIME: 03/06/2018 1:02 pm REASON FOR STUDY: ams lethargic, headache, new onset seizure COMPARISON: CT brain 03/06/2018 TECHNIQUE: Multiplanar imaging includes non-contrasted T1, T2, FLAIR, and diffusion with ADC map seq uences. Images stored on PACS. LIMITATIONS: None. FINDINGS: ANATOMY: No developmental anomalies. Normal vascular flow voids. Pituitary fossa normal. CSF SPACES: Mild prominence of the ventricles out of proportion to sulci and sylvian fissures. No hem orrhage. CEREBRUM: There is increased T2/FLAIR and decreased T1 weighted signal over the bilateral posterior f rontal parietal and occipital cortex and subcortical white matter, without associated signal abnormal ities on diffusion-weighted imaging. This suggests posterior reversible encephalopathy. Findings di scussed with Dr. Pond in the emergency room. No MR findings worrisome for acute infarct. 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 POSTERIOR FOSSA: No signal alteration. No hemorrhage. No edema, masses or mass effect. Internal samantha tory canals, cerebello-pontine angles, mastoids normal. DIFFUSION IMAGING: Negative for acute or sub-acute infarction. ORBITS: Post bilateral cataract surgery PARANASAL SINUSES: No fluid levels. Mucosa normal. OTHER: No other significant finding. IMPRESSION: Posterior reversible encephalopathy Underlying chronic white matter disease with mild prominence of the ventricles EVIDENCE OF ACUTE STROKE: NO. TECHNICAL DOCUMENTATION: JOB ID: [id number] [employer]- All Rights Reserved Reading location - IP/workstation name: [email or web address]
--- NOTE | 2018-03-06 13:42 | EKG REPORT ---
SEVERITY:- ABNORMAL ECG - SINUS RHYTHM PROBABLE LVH WITH SECONDARY REPOL ABNRM BORDERLINE PROLONGED QT INTERVAL : Confirmed by: Dez Rincon MD 06-Mar-2018 13:42:02
[2018-03-06] MEDS ORDERED: ONDANSETRON HCL INJ/PF 4 MG/2 ML SDV IV ONE (15:52)
[2018-03-06] MEDS ORDERED: PANTOPRAZOLE SODIUM 40 MG VIAL IV ONE (15:52)
[2018-03-06 16:45] VITALS: BP 148/84
== END 2018-03-06 16:30 | disposition short-term general hospital (02) ==
LOC: ER 08:06
DX: I16.1 Hypertensive emergency (principal); I67.4 Hypertensive encephalopathy; I12.0 Hypertensive chronic kidney disease with stage 5 chronic kidney disease or end stage renal disease; E11.22 Type 2 diabetes mellitus with diabetic chronic kidney disease; N18.6 End stage renal disease; D63.1 Anemia in chronic kidney disease; Z99.2 Dependence on renal dialysis; R56.9 Unspecified convulsions; R11.10 Vomiting, unspecified; R32 Unspecified urinary incontinence; D64.9 Anemia, unspecified; R90.82 White matter disease, unspecified; J44.9 Chronic obstructive pulmonary disease, unspecified; F17.210 Nicotine dependence, cigarettes, uncomplicated; Z71.6 Tobacco abuse counseling; Z88.8 Allergy status to other drugs, medicaments and biological substances
CPT/HCPCS: 93005; 96376; 99406; 99291; 96375; 96365; 36415; 87040; 82553; 82962; 80307 ×3; 82550; 83690; 85025; 85610; 85730; 87077; 80053; 84484; 70551; 71045; 70450; 93010; J1200; J3010; J3490; J2060; C9113; J2405; J1953; S0164